=== PATIENT | female | born 1970 | race Caucasian/White ===

== ENCOUNTER 2018-07-02 20:51 | Emergency (ER) | payer OTHER ==
--- NOTE | 2018-07-02 21:29 | EDPHY ---
H & P Stated Complaint: CHEST PAIN, ANXIETY Time Seen by Provider: 07/02/18 21:29 - Personal History LMP (Females 10-55): IUD In Place Current Tetanus Diphtheria and Acellular Pertussis (TDAP): Unsure - Medical/Surgical History Hx Asthma: No Hx Chronic Respiratory Disease: No Hx Diabetes: No Hx Cardiac Disease: No Hx Renal Disease: No Hx Cirrhosis: No Hx Alcoholism: No Hx HIV/AIDS: No Hx Splenectomy or Spleen Trauma: No Other PMH: MIRENA - Social History Smoking Status: Former smoker Constitutional: Initial Vital Signs Temperature (C) 36.5 C 07/02/18 21:02 Heart Rate 76 07/02/18 21:02 Respiratory Rate 16 07/02/18 21:02 Blood Pressure 142/83 H 07/02/18 21:02 O2 Sat (%) 97 07/02/18 21:02 O2 Delivery Mode Room Air Allergies/Adverse Reactions: No Known Allergies Allergy (Unverified 07/02/18 21:02) Home Medications: Medication Instructions Recorded buPROPion [Wellbutrin 75mg (*)] 75 mg PO DAILY #30 tab 07/02/18 Medical Decision Making ED Course/Re-evaluation: CHIEF COMPLAINT: Chest pain and anxiety HISTORY OF PRESENT ILLNESS: The patient is a 47 y/o female with a history of anxiety complaining of chest pain after experiencing more anxiety today. The patient has been more anxious lately and was discussing her symptoms to her friend. While discussing these symptoms she had another anxiety attack and became concerned that the was having a heart attack as she had chest pain and palpitations. No fever, headache , abdominal pain, urinary or bowel complaints, numbness, paresthesias. REVIEW OF SYSTEMS: A comprehensive 10 system review of systems is otherwise negative aside from elements mentioned in the history of present illness and medical decision making. PHYSICAL EXAM: HR, BP, O2 Sat, RR. Temp noted General Appearance: Alert, well hydrated, appropriate, and non-toxic appearing. Head: Atraumatic without scalp tenderness or obvious injury Eyes: Pupils equal, round, reactive to light and accommodation, EOMI, no trauma , no injection. Ears: Clear bilaterally, no perforation, normal landmarks Nose: Atraumatic, no rhinorrhea, clear. Throat: There is no erythema or exudates, no lesions, normal tonsils, mucus membranes moist. Neck: Supple, 2+ carotid upstroke, nontender, no lymphadenopathy. Respiratory: No retractions, no distress, no wheezes, and no accessory muscle use. Lungs are clear to auscultation bilaterally. Cardiovascular: Regular rate and rhythm, no murmurs, rubs, or gallops. Bilateral carotid, radial, dorsalis pedis, and posterior tibial pulses intact. Good capillary refill all extremities. Gastrointestinal: Abdomen is soft, nontender, non-distended, no masses, no rebound, no guarding, no peritoneal signs. Musculoskeletal: Normal active ROM of all extremities, atraumatic. Neurological: Alert, appropriate, and interactive. The patient has normal DTRs and non-focal cranial nerves, motor, sensory, and cerebellar exam. Skin: No rashes, good turgor, no nodules on palpation. Past medical history: Anxiety Past surgical history: Denies Family history: Denies Social history: Lives in [place], employed at [employer] as a teacher DIAGNOSTICS/PROCEDURES/CRITICAL CARE TIME: EKG: The 12 lead EKG was interpreted by myself as sinus rhythm with a rate of 60. See hard copy and/or "tracemaster" electronic copy for interpretation. DIFFERENTIAL DIAGNOSIS: The differential diagnosis for the patient's chest pain included but was not limited to anxiety, myocardial ischemia, pulmonary embolus, chest wall pain, pleural inflammation, and pulmonary infectious causes. MEDICAL DECISION MAKING: The patient is a 47 y/o female with a history of anxiety presenting with chest pain after experiencing more anxiety today. She has a normal physical exam. Labs and EKG ordered; 1mg IV Ativan administered. 2119: I interpreted patient's EKG as sinus rhythm with a rate of 60. 2150: Patient's labs are unremarkable and her troponin is negative. 2156: Reassessed patient and discussed normal laboratory and imaging studies. I have prescribed her Wellbutrin for her anxiety and advised her to follow up with Dr. Tejada and [facility]. Return precautions provided; patient is comfortable with this plan. - Data Points Laboratory Results: 07/02/18 21:35 POC Troponin I 0.00 ng/mL ng/mL (0.00-0.08) Point of Care Test Results: Chemistry 07/02/18 21:35 POC Troponin I 0.00 ng/mL ng/mL (0.00-0.08) Departure - Departure Disposition: Home, Routine, Self-Care Clinical Impression: Anxiety Chest pain Qualifiers: Chest pain type: other chest pain Qualified Code(s): R07.89 - Other chest pain Condition: Good Instructions: Chest Pain (ED), Anxiety (ED) Additional Instructions: 1. Follow-up with your primary doctor within 72 hours. 2. Return to the Emergency Department for fever, chest pain, shortness of breath , increasing pain or other worsening of condition. 3. Follow up with a zipper slide attacher for further testing, as soon as possible, within one week. 4. As we discussed, it is impossible to fully rule out heart disease as the cause of your chest pain in the emergency department. We would be happy to reevaluate you and observe you in the hospital at any time. 5. Take Wellbutrin as prescibed. 6. Follow up with [facility] regarding your anxiety. Referrals: Sukumar Tejada MD [Medical Doctor] - As per Instructions [facility],. [Clinic] - As per Instructions Prescriptions: buPROPion [Wellbutrin 75mg (*)] 75 mg PO DAILY #30 tab Report Scribed for: Kenneth Keller Report Scribed by: Cherelle Benavides Date of Report: 07/02/18 Time of Report: 22:00
[2018-07-02] MEDS ORDERED: LORazepam 2 MG/ML INJ IVP ONE (21:58)
[2018-07-02 22:11] VITALS: BP 118/71
== END 2018-07-02 22:10 | disposition home or self-care (01) ==
DX: R07.89 Other chest pain (principal); F41.9 Anxiety disorder, unspecified
CPT/HCPCS: 84484-ER; 96374; J2060

== ENCOUNTER → 2018-11-13 | Outpatient (CLI) | payer OTHER | LOC: FIMAGING 11:03 ==